=== PATIENT | female | born 1955 | race Caucasian/White ===

== ENCOUNTER 2016-10-02 14:34 | Outpatient (CLI) ==
[2016-10-02 19:08] LABS: FLU INTERNAL QC INTERNAL QC VALID; RAPID FLU A NEGATIVE (NEGATIVE); RAPID FLU B NEGATIVE (NEGATIVE)
== END 2016-10-02 14:35 | disposition home or self-care (01) ==
LOC: LAB 14:34
PROVIDERS: ATTEND Nurse Practitioner Family
DX: J02.9 Acute pharyngitis, unspecified (principal); R52 Pain, unspecified
CPT/HCPCS: 87651; 87804; 87880

== ENCOUNTER 2016-10-26 09:03 | Outpatient (CLI) ==
[2016-10-26 09:13] LABS: BASOPHILS # (AUTO) 0.1 K/uL (0-0.2); BASOPHILS % (AUTO) 1.1 % (0.0-3.0); EOSINOPHILS # (AUTO) 0.3 K/ul (0.0-0.7); EOSINOPHILS % (AUTO) 5.2 % (0.0-7.0); HEMATOCRIT 42.1 % (37.0-47.0); HEMOGLOBIN 14.7 g/dl (12.0-16.0); IMMATURE GRANULOCYTE % (AUTO) 0.4 % (0.0-5.0); LYMPHOCYTES % (AUTO) 36.3 (10.0-50.0); MEAN CORPUSCULAR HEMOGLOBIN 31.8 pg (27.0-31.0); MEAN CORPUSCULAR HGB CONC 34.9 (31.8-35.4); MEAN CORPUSCULAR VOLUME 91.1 fl (81.0-99.0); MONOCYTES # (AUTO) 0.5 K/uL (0.4-2.0); NEUTROPHILS # (AUTO) 2.6 K/ul (2.0-6.9); PLATELET COUNT 186 10^3/uL (140-440); RED BLOOD COUNT 4.62 10^6/ul (4.20-5.40); WHITE BLOOD COUNT 5.43 K/ul (4.6-10.2)
[2016-10-26 09:56] LABS: ALBUMIN 4.2 g/dL (3.4-5.0); ALBUMIN/GLOBULIN RATIO 1.24; ANION GAP 11.3; BILIRUBIN,TOTAL 0.63 mg/dL (0.00-1.20); BUN/CREATININE RATIO 11.62; CHOL/HDL RATIO 4.3 (4.5-5.5); CREATININE 0.86 mg/dL (0.60-1.30); POTASSIUM 4.3 mmol/L (3.5-5.10); TOTAL PROTEIN 7.6 g/dL (5.8-8.1)
--- NOTE | 2016-10-26 10:45 | CT ---
EXAM: CT of the chest without contrast History: Pulmonary nodule follow-up. Comparison: Chest CT 09/20/2015 Technique: Multiplanar CT images through the thorax were obtained without the administration of IV contrast Findings: Heart size is normal. No pericardial effusion. Coronary calcifications. Great vessels are unremarkable. No pathologically enlarged thoracic lymph nodes. Calcified mediastinal and hilar lymph nodes again noted. Mild biapical scarring again appreciated. No suspicious lung nodules or lung masses. No consolidation. No pleural fluid and no pneumothorax. Within the visualized upper abdomen, fatty infiltration of the liver. Small hiatal hernia. Calcifi ed granulomas within the spleen. No acute osseous abnormalities. Impression: 1. No acute intrathoracic process. 2. No suspicious lung masses or lung nodules. 3. Coronary artery disease. 4. Fatty infiltration of the liver.
== END 2016-10-26 09:04 | disposition home or self-care (01) ==
LOC: LAB 09:03
PROVIDERS: ATTEND Nurse Practitioner Family
DX: R91.1 Solitary pulmonary nodule (principal); I10 Essential (primary) hypertension; I25.10 Atherosclerotic heart disease of native coronary artery without angina pectoris; E78.5 Hyperlipidemia, unspecified
CPT/HCPCS: 36415; 80053; 80061; 84443; 85025

== ENCOUNTER 2016-11-04 12:30 | Outpatient (CLI) | END 2016-11-04 12:31 | disposition home or self-care (01) | LOC: LAB 12:30 | PROVIDERS: ATTEND Nurse Practitioner Family | DX: R94.5 Abnormal results of liver function studies (principal) | CPT/HCPCS: 36415; 80074 ==

== ENCOUNTER 2016-11-10 10:04 | Outpatient (CLI) ==
--- NOTE | 2016-11-11 07:22 | MAMMO ---
EXAM: Digital screening mammogram HISTORY: Annual screening mammogram COMPARISON: Mammogram 05/13/2015 and 06/01/2014 FINDINGS: Bilateral CC and MLO views of the breasts were performed digitally and demonstrate scatte red fibroglandular breast density (25 - 50%). Vascular calcifications are unchanged. The right raffaele st nodule in the upper outer right breast is stable. There is no new abnormal nodule or calcificatio n. There is no significant interval change. IMPRESSION: No new or suspicious nodule or calcification. Stable right breast nodule since 2013. RECOMMENDATION: Annual screening mammogram BIRADS category II: Benign findings
== END 2016-11-10 10:05 | disposition home or self-care (01) ==
LOC: RAD 10:04
PROVIDERS: ATTEND Nurse Practitioner Family
DX: Z12.31 Encounter for screening mammogram for malignant neoplasm of breast (principal)

== ENCOUNTER 2017-05-04 11:43 | Outpatient (CLI) ==
[2017-05-04 12:21] LABS: CHOL/HDL RATIO 7.1 (4.5-5.5)
[2017-05-04 16:22] LABS: BILIRUBIN,URINE Negative (NEGATIVE); KETONES,URINE Negative (NEGATIVE); LEUKOCYTE ESTERASE ,URINE Trace (NEGATIVE); NITRITE,URINE Positive (NEGATIVE); PH,URINE 6.5 (5-9); PROTEIN,URINE Negative (NEGATIVE); URINE, BLOOD Negative (NEGATIVE)
[2017-05-04 16:26] LABS: ADD URINE MICROSCOPIC YES
[2017-05-04 16:29] LABS: BACTERIA,URINE 2+ (NOT PRESENT)
== END 2017-05-04 11:44 | disposition home or self-care (01) ==
LOC: LAB 11:43
PROVIDERS: ATTEND Internal Medicine Cardiovascular Disease
DX: R30.9 Painful micturition, unspecified (principal); E78.5 Hyperlipidemia, unspecified
CPT/HCPCS: 36415; 80061; 81001; 87086

== ENCOUNTER 2017-06-02 09:34 | Outpatient (CLI) ==
[2017-06-02 10:12] LABS: CHOL/HDL RATIO 3.8 (4.5-5.5)
== END 2017-06-02 09:35 | disposition home or self-care (01) ==
LOC: LAB 09:34
PROVIDERS: ATTEND Internal Medicine Cardiovascular Disease
DX: E78.5 Hyperlipidemia, unspecified (principal)
CPT/HCPCS: 36415; 80061

== ENCOUNTER 2017-08-21 19:53 | Emergency (ER) ==
[2017-08-21 20:03] VITALS: BP 187/109; TEMP 99.3; BMI 31.3
--- NOTE | 2017-08-21 20:18 | ED.PDOC ---
General ED Provider: Dr. PAM FELIX Chief Complaint: Ankle Pain/Injury Stated Complaint: Patient state she fell 6 hours ago on [place]. Now has severe left ankle swelling. Time Seen by Physician: 20:18 Mode of Arrival: Walk-In Information Source: Patient Exam Limitations: No limitations Primary Care Provider: ALAINA GARCIA Nursing and Triage Documentation Reviewed and Agree: Yes Reviewed sepsis parameters & appropriate labs ordered?: Yes System Inflammatory Response Syndrome: Not Applicable Sepsis Protocol: For patient's 13 years and over: Temp is 96.8 and below OR 101 and greater Pulse >90 BPM Resp >20/minute Acutely Altered Mental Status Are patient's symptoms suggestive of a new infection, such as: -Pneumonia -Skin, Soft Tissue -Endocarditis -UTI -Bone, Joint Infection -Implantable Device -Acute Abdominal Infection -Wound Infection -Meningitis -Blood Stream Catheter Infection -Unknown System Inflammatory Response Syndrome: Not Applicable Musculoskeletal Complaint Exam - Ankle/Foot Complaint/Exam Location of Injury: Reports: Left, Ankle Mechanism of Injury: Reports: Trauma (from fall ) Onset/Duration: 8 hours ago Symptoms Are: Reports: Still present Onset of Pain: Reports: Immediate, Post accident Initial Severity: Severe Current Severity: Moderate Location: Reports: Discrete (left lateral ankle ) Character: Reports: Aching, Throbbing Alleviating: Reports: None Aggravating: Reports: Movement, Weight bearing, Prolonged standing Able to Bear Weight: Yes Associated Signs and Symptoms: Reports: Swelling Related History: Denies: Similar episode, Occupational injury Gout Risk Factors: Reports: >40 years old. Denies: Male Related Surgical History: Reports: None Lower Extremity Findings: Present: Swelling, Tenderness, Limited range of motion Achilles Tendon Abnormality: No Tenderness: Present: Lateral malleolus Limited Range of Motion: Present: Inversion, Eversion Ankle/Foot Picture: 1 - swelling and tenderness to palpation. Differential Diagnosis: Closed Fracture, Sprain, Strain Review of Systems - Review Of Systems Constitutional: Reports: No symptoms Eyes: Reports: No symptoms Ears, Nose, Mouth, Throat: Reports: No symptoms Respiratory: Reports: No symptoms Cardiac: Reports: No symptoms GI: Reports: No symptoms : Reports: No symptoms Musculoskeletal: Reports: Joint pain, Joint swelling Skin: Reports: No symptoms Neurological: Reports: No symptoms Endocrine: Reports: No symptoms Hematologic/Lymphatic: Reports: No symptoms All Other Systems: Reviewed and Negative Past Medical History - Past Medical History Previously Healthy: Yes Endocrine: Reports: None, Dyslipidemia Cardiovascular: Reports: CAD, Hypertension Respiratory: Reports: None Hematological: Reports: None Gastrointestinal: Reports: None Genitourinary: Reports: None Neuro/Psych: Reports: None Musculoskeletal: Reports: None Cancer: Reports: None Last Menstrual Period: UNKNOWN - Surgical History General Surgical History: Reports: None, Tubal ligation, , Orthopedic ( Left wrist surgery due to ) - Family History Family History: Reports: Unknown - Social History Smoking Status: Former smoker Hx Substance Use: No Alcohol Screening: None - Immunizations Tetanus Shot up to Date: Yes Physical Exam - Physical Exam Appearance: Well-appearing, Well-nourished Pain Distress: Moderate Respiratory: Airway patent, Breath sounds clear, Breath sounds equal, Respirations nonlabored Cardiovascular: RRR, Pulses normal, No rub, No murmur Musculoskeletal: ROM intact, Edema Skin: Warm, Dry, Normal color Neurological: Sensation intact, Motor intact, Reflexes intact, Cranial nerves intact, Alert, Oriented Interpretation - Radiology Interpretation Radiology Interpretation By: ED Physician Radiology Results: Positive (mildly displaced fracture of the distal fibular on the left) Exam Interpreted: Other (Left ankle) Critical Care Note - Critical Care Note Total Time (mins): 0 Course - Course Orders, Labs, Meds: Orders Category Date Time Status ED CRUTCHES .ONCE EMERGENCY 08/21/17 21:22 Active Splint [ED SPLINT APPLICATION] .ONCE EMERGENCY 08/21/17 21:22 Active Ibuprofen [Motrin] MEDS 08/21/17 20:16 Discontinued 800 mg PO ONCE STA ANKLE, LEFT MIN 3 VIEWS Stat RADS 08/21/17 20:16 Completed Medications Discontinued Medications Generic Name Dose Route Start Last Admin Trade Name Freq PRN Reason Stop Dose Admin Ibuprofen 800 mg 08/21/17 20:16 08/21/17 20:47 Motrin PO 08/21/17 20:17 800 mg ONCE STA Administration Vital Signs: Temp Pulse Resp BP Pulse Ox 08/21/17 19:54 99.3 F 66 20 187/109 H 95 Departure - Departure Time of Disposition: 21:14 Disposition: HOME SELF-CARE Discharge Problem: Closed left fibular fracture Qualifiers: Encounter type: initial encounter Fibula location: distal Fracture morphology: unspecified fracture morphology Qualified Code(s): S82.832A - Other fracture of upper and lower end of left fibula, initial encounter for closed fracture Instructions: Ankle Fracture (ED) Condition: Fair Pt referred to PMD for follow-up: Yes (for Orthopedic refferal ) IPMP verified?: No (giving less aaron 7 days supply. ) Additional Instructions: Keep foot elevated. Follow up with PCP in 3 days for Orthopedic referral Prescriptions: Ibuprofen [Motrin] 600 mg PO Q6H PRN #30 tablet PRN Reason: Analgesia Tramadol HCl [Ultram] 50 mg PO Q6H PRN #20 tablet PRN Reason: Severe Pain Allergies/Adverse Reactions: Allergies Penicillins Allergy (Severe, Verified 08/21/17 20:01) rash Pt notified to get medical alert necklace codeine Allergy (Verified 08/21/17 20:01) NO MRI DUE TO TYPE OF STENT PLACED Adverse Reaction (Uncoded 08/21/17 20:01) Home Medications: Ambulatory Orders Multivitamin [Multi Vitamin Daily] 1 each PO DAILY 07/09/14 Aspirin 81 mg PO ONCE 12/11/14 Metoprolol Tartrate 0.5 tab PO BID 12/11/14 Nitroglycerin 0.4 mg SL DIRECTED PRN 12/11/14 Cetirizine HCl 5 mg PO DAILY PRN 05/09/15 Calcium Carbonate/Vitamin D3 [Calcium + Vitamin D Tablet] 1 each PO d 09/24/15 Losartan Potassium 50 mg PO d 09/24/15 Atorvastatin Calcium [Lipitor] 80 mg PO DAILY 05/04/17 Ibuprofen [Motrin] 600 mg PO Q6H PRN #30 tablet 08/21/17 Tramadol HCl [Ultram] 50 mg PO Q6H PRN #20 tablet 08/21/17 Disposition Discussed With: Patient, Family
[2017-08-21] MEDS: MOTRIN PO STA (20:47)
--- NOTE | 2017-08-22 06:53 | DI ---
EXAM: Three-view left ankle COMPARISON: None HISTORY: Trauma and pain FINDINGS: There is a minimally displaced fracture of the lateral malleolus of the distal left fibula. The ankle mortise does appear to be disrupted. There is extremely advanced degenerative change par ticularly at the medial malleolus and the medial talus. There is extensive soft tissue swelling. IMPRESSION: 1. Acute fracture of the lateral malleolus of the distal left fibula disruption of the ankle mortise . 2. Advanced degenerative changes.
== END 2017-08-21 21:39 | disposition home or self-care (01) ==
LOC: ED 19:53
DX: S82.832A Other fracture of upper and lower end of left fibula, initial encounter for closed fracture (principal); W00.0XXA Fall on same level due to ice and snow, initial encounter
CPT/HCPCS: 99282

== ENCOUNTER 2017-09-29 16:21 | Outpatient (CLI) | END 2017-09-29 16:22 | disposition home or self-care (01) | LOC: LAB 16:21 | PROVIDERS: ATTEND Nurse Practitioner Family | DX: R50.9 Fever, unspecified (principal) | CPT/HCPCS: 87502 ==

== ENCOUNTER 2018-03-06 20:24 | Emergency (ER) ==
--- NOTE | 2018-03-06 20:40 | ED.PDOC ---
General ED Provider: Dr. KIM HAIR-ER Chief Complaint: Chest Pain Stated Complaint: my chest was hurting Time Seen by Physician: 20:34 Mode of Arrival: Walk-In Information Source: Patient, Family Exam Limitations: No limitations Primary Care Provider: ALAINA GARCIA Nursing and Triage Documentation Reviewed and Agree: Yes Does patient meet sepsis criteria?: No System Inflammatory Response Syndrome: Not Applicable Sepsis Protocol: For patient's 13 years and over: Temp is 96.8 and below OR 101 and greater Pulse >90 BPM Resp >20/minute Acutely Altered Mental Status Are patient's symptoms suggestive of a new infection, such as: -Pneumonia -Skin, Soft Tissue -Endocarditis -UTI -Bone, Joint Infection -Implantable Device -Acute Abdominal Infection -Wound Infection -Meningitis -Blood Stream Catheter Infection -Unknown Cardiovascular Complaint Exam - Chest Pain Complaint/Exam Onset: Gradual Duration: today Symptoms Are: Still present Initial Severity: Mild Current Severity: Moderate Location: Reports: Midsternal Pain Radiates: Reports: Left arm Character: Reports: Heaviness, Pressure Aggravating: Reports: None Alleviating: Reports: Nitro Associated Signs and Symptoms: Reports: Short of air. Denies: Diaphoresis, Nausea, Vomiting, Fever, Palpitations, Cough, Hemoptysis, Back pain, Abdominal pain, Dizziness, Calf pain, Calf swelling History of Healthcare-Acquired Pneumonia: Reports: No Prior Care for this Complaint: No Recent Stress Test: No Recent Echo/LV Function: No JVD Present: No Subcutaneous Emphysema Present: No Diminshed Breath Sounds: No Bilateral Pulses Present: Yes Unequal Pulses Noted: No If Risk Factors for AMI/ACS Consider: EKG Quality Indicator For Non-Traumatic Chest Pain/Syncope: EKG Performed Review of Systems - Review Of Systems Constitutional: Reports: No symptoms Eyes: Reports: No symptoms Ears, Nose, Mouth, Throat: Reports: No symptoms Respiratory: Reports: No symptoms Cardiac: Reports: Chest pain GI: Reports: No symptoms : Reports: No symptoms Musculoskeletal: Reports: No symptoms Skin: Reports: No symptoms Neurological: Reports: No symptoms Endocrine: Reports: No symptoms Hematologic/Lymphatic: Reports: No symptoms All Other Systems: Reviewed and Negative Past Medical History - Past Medical History Previously Healthy: Yes Endocrine: Reports: None, Dyslipidemia Cardiovascular: Reports: CAD, Hypertension Respiratory: Reports: None Hematological: Reports: None Gastrointestinal: Reports: None Genitourinary: Reports: None Neuro/Psych: Reports: None Musculoskeletal: Reports: None Cancer: Reports: None - Surgical History General Surgical History: Reports: None, Tubal ligation, , Orthopedic ( Left wrist surgery due to ) - Family History Family History: Reports: Unknown - Social History Smoking Status: Former smoker Hx Substance Use: No Alcohol Screening: None Physical Exam - Physical Exam Appearance: Well-appearing Pain Distress: Mild Eyes: MAURICIO, EOMI, Conjunctiva clear ENT: Ears normal, Nose normal, Oropharynx normal Neck: Supple Respiratory: Airway patent Cardiovascular: RRR, Pulses normal, No rub, No murmur GI/: Soft, Nontender, No masses, Bowel sounds normal, No Organomegaly Musculoskeletal: Normal strength, ROM intact, No edema, No calf tenderness Skin: Warm, Dry, Normal color Neurological: Sensation intact, Motor intact, Reflexes intact, Cranial nerves intact, Alert, Oriented Psychiatric: Affect appropriate, Mood appropriate, Anxious Interpretation - Radiology Interpretation Radiology Interpretation By: ED Physician Radiology Results: Negative Exam Interpreted: Portable CXR - EKG Interpretation Time of EKG #1: 20:35 Rate: Normal Rhythm: Sinus Ectopy: None [place]: NL ST Segment: Normal Interpretation: nsr Re-Evaluation - Re-Evaluation Time of Re-Evaluation: 20:47 Status: Improved Vital Signs Stable: Yes Pain Level: 0 Appearance: NAD Lungs: Clear Skin: Warm and Dry Neuro: Alert and Oriented X3 Physician Notification - Case Discussed Physician Notified: dr lake Time of Notification: 20:48 Critical Care Note - Critical Care Note Total Time (mins): 0 Course - Course Hematology/Chemistry: 03/06/18 20:35 03/06/18 20:35 Orders, Labs, Meds: Lab Review 03/06/18 03/06/18 03/06/18 20:35 20:35 20:35 WBC 5.86 RBC 4.49 Hgb 13.8 Hct 40.2 MCV 89.5 MCH 30.7 MCHC 34.3 RDW Coeff of Braeden 12.0 Plt Count 180 Immature Gran % (Auto) 0.2 Neut % (Auto) 47.4 Lymph % (Auto) 36.9 Mineral % (Auto) 10.2 H Eos % (Auto) 4.4 Baso % (Auto) 0.9 Immature Gran # (Auto) 0.0 Neut # (Auto) 2.8 Lymph # (Auto) 2.2 Mineral # (Auto) 0.6 Eos # (Auto) 0.3 Baso # (Auto) 0.1 Sodium 141 Potassium 3.6 Chloride 108 H Carbon Dioxide 21 L Anion Gap 15.6 BUN 6 L Creatinine 0.83 Estimated GFR (MDRD) 69.00 BUN/Creatinine Ratio 7.22 Glucose 132 H Calcium 9.7 Total Bilirubin 0.8 AST 62 H ALT 107 H Alkaline Phosphatase 182 H Total Creatine Kinase 72 Troponin I < 0.0100 Total Protein 7.3 Albumin 3.8 Globulin 3.5 Albumin/Globulin Ratio 1.09 Orders Category Date Time Status EKG-(ED ONLY) Stat CARDIO 03/06/18 20:28 Completed TRANSFER TO OUTSIDE FACILITY .TO [facility] 03/06/18 20:49 Active ([place], [place]) WRITE TRANSFER/SBAR NOTE ONCE CARE 03/06/18 20:49 Active DISCHARGE ASSESSMENT ONCE DISCHARGE 03/06/18 20:49 Active WRITE DISCHARGE NOTE ONCE DISCHARGE 03/06/18 20:49 Active [employer] [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] .ONCE EMERGENCY 03/06/18 20:29 Active IV [ED IV/MEDIPORT/POWERPORT] .ONCE EMERGENCY 03/06/18 20:29 Active CBC W/ AUTO DIFF Stat LAB 03/06/18 20:35 Completed COMPREHENSIVE METABOLIC PANEL Stat LAB 03/06/18 20:35 Completed CREATINE KINASE Stat LAB 03/06/18 20:35 Completed TROPONIN I Stat LAB 03/06/18 20:35 Completed 0.9 % Sodium Chloride [Saline Flush] MEDS 03/06/18 20:29 Ordered 1 syr IVF PRN PRN Aspirin [Aspirin Chewable] MEDS 03/06/18 20:47 Discontinued 324 mg PO ONCE STA CXR [CHEST, 1V AP ONLY] Stat RADS 03/06/18 20:29 Taken Medications Generic Name Dose Route Start Last Admin Trade Name Freq PRN Reason Stop Dose Admin Sodium Chloride 1 syr 03/06/18 20:29 03/06/18 21:10 Saline Flush IVF 1 syr PRN PRN Administration To flush IV Discontinued Medications Generic Name Dose Route Start Last Admin Trade Name Freq PRN Reason Stop Dose Admin Aspirin 324 mg 03/06/18 20:47 03/06/18 21:08 Aspirin Chewable PO 03/06/18 20:48 324 mg ONCE STA Administration Vital Signs: Temp Pulse Resp BP Pulse Ox 03/06/18 20:27 97.1 F L 74 24 155/95 H 97 BLAYNE Risk Score BLAYNE Risk Score: Risk Score Odds of by 30D 0 0.1 (0.1-0.2) 1 0.3 (0.2-0.3) 2 0.4 (0.3-0.5) 3 0.7 (0.6-0.9) 4 1.2 (1.0-1.5) 5 2.2 (1.9-2.6) 6 3.0 (2.5-3.6) 7 4.8 (3.8-6.1) Departure - Departure Time of Disposition: 20:48 Disposition: TSF SHORT-TRM HOSP Discharge Problem: Chest pain Instructions: Chest Pain (ED) Condition: Good Pt referred to PMD for follow-up: Yes IPMP verified?: No Allergies/Adverse Reactions: Allergies Penicillins Allergy (Severe, Verified 03/06/18 20:42) rash Pt notified to get medical alert necklace codeine Allergy (Verified 03/06/18 20:42) NO MRI DUE TO TYPE OF STENT PLACED Adverse Reaction (Uncoded 03/06/18 20:42) Home Medications: Ambulatory Orders Multivitamin [Multi Vitamin Daily] 1 each PO DAILY 07/09/14 Aspirin 81 mg PO ONCE 12/11/14 Cetirizine HCl 5 mg PO DAILY PRN 05/09/15 Calcium Carbonate/Vitamin D3 [Calcium + Vitamin D Tablet] 1 each PO d 09/24/15 Acetaminophen [Tylenol Arthritis] 650 mg PO BID PRN 03/06/18 Transfer Form Completed: Yes Disposition Discussed With: Patient, Family
[2018-03-06 20:43] VITALS: BP 155/95; TEMP 97.1; BMI 33.1
[2018-03-06] MEDS ORDERED: ASPIRIN CHEWABLE PO STA (20:47)
--- NOTE | 2018-03-07 08:08 | DI ---
Exam: Single view of the chest. Comparison: CT chest performed 10/26/2016. Reason for exam: Chest pain. FINDINGS: No pneumothorax, pleural effusion, or focal consolidation. The cardiac silhouette is not enlarged. The imaged osseous structures appear grossly unremarkable without acute fracture. Impression: No acute cardiopulmonary process.
== END 2018-03-06 22:17 | disposition short-term general hospital (02) ==
LOC: ED 20:24
DX: R07.9 Chest pain, unspecified (principal); R06.02 Shortness of breath; I25.10 Atherosclerotic heart disease of native coronary artery without angina pectoris; I10 Essential (primary) hypertension; E78.5 Hyperlipidemia, unspecified
CPT/HCPCS: 36415; 80053; 82550; 84484; 85025; 93005; 93010; 99285

== ENCOUNTER 2018-03-09 22:19 | Outpatient (CLI) | END 2018-03-09 23:00 | disposition short-term general hospital (02) | LOC: AMBL 22:19 | PROVIDERS: ATTEND Internal Medicine Geriatric Medicine | DX: R07.9 Chest pain, unspecified (principal); I10 Essential (primary) hypertension; Z95.5 Presence of coronary angioplasty implant and graft ==

== ENCOUNTER 2018-03-11 10:53 | Outpatient (CLI) | END 2018-03-11 10:54 | disposition home or self-care (01) | LOC: LAB 10:53 | PROVIDERS: ATTEND Nurse Practitioner Family | DX: R79.89 Other specified abnormal findings of blood chemistry (principal) | CPT/HCPCS: 36415; 80053 ==

== ENCOUNTER 2018-03-22 15:41 | Outpatient (CLI) | END 2018-03-22 15:42 | disposition home or self-care (01) | LOC: RHC-LAB 15:41 | PROVIDERS: ATTEND Emergency Medicine | DX: E78.5 Hyperlipidemia, unspecified (principal); I25.10 Atherosclerotic heart disease of native coronary artery without angina pectoris; I10 Essential (primary) hypertension | CPT/HCPCS: 36415; 80053; 80061; 84443 ==

== ENCOUNTER 2018-09-29 16:16 | Outpatient (CLI) ==
--- NOTE | 2018-09-30 09:01 | DI ---
EXAM: Two views of the chest. History: Atherosclerosis, heart disease. Comparison: Chest radiograph 03/06/2018 Findings: Heart size is normal. No focal consolidation. No appreciable pleural fluid and no pneumo thorax. No acute osseous abnormalities. Impression: No acute cardiopulmonary process
== END 2018-09-29 16:17 | disposition home or self-care (01) ==
LOC: LAB 16:16
PROVIDERS: ATTEND Nurse Practitioner Family
DX: I25.10 Atherosclerotic heart disease of native coronary artery without angina pectoris (principal); R06.02 Shortness of breath; E78.5 Hyperlipidemia, unspecified; I10 Essential (primary) hypertension
CPT/HCPCS: 36415; 80053; 80061; 84443; 85025; 93005; 93010

== ENCOUNTER 2018-10-31 09:12 | Outpatient (CLI) ==
--- NOTE | 2018-10-31 14:56 | US ---
EXAM: Digital diagnostic mammogram and bilateral ultrasound HISTORY: Left breast lump COMPARISON: 11/10/2016 FINDINGS: Mammogram: Digital MLO and CC views of the right and left breast were performed. Spot compression CC and MLO views of the left breast performed in the region of palpable abnormality. Spot compressio n CC and MLO views performed in the right breast in the region of asymmetry. Tomosynthesis was perfo rmed. Computer aided detection utilized. There are scattered fibroglandular densities. There is as ymmetry in the right inferior medial breast that persists on spot compression imaging. There is no e vidence for mass, asymmetry, distortion, or suspicious calcifications in the left breast. Ultrasound: Right: Ultrasound performed in the region of asymmetry at the 03-06 o'clock position. No sonographi c abnormality identified. No mass or cyst identified. Left: Ultrasound performed in the region of palpable abnormality, 11 o'clock position 9 cm from the nipple. No sonographic abnormality identified. No mass or cyst identified. IMPRESSION: 1. Negative left breast mammogram and ultrasound. 2. Right breast mammographic asymmetry without corresponding sonographic finding. This finding is p robably benign. BIRADS category 3, probably benign
== END 2018-10-31 09:13 | disposition home or self-care (01) ==
LOC: RAD 09:12
PROVIDERS: ATTEND Nurse Practitioner Family
DX: N63.0 Unspecified lump in unspecified breast (principal)